=== PATIENT | female | born 1980 | race Caucasian/White ===

== ENCOUNTER → 2016-11-09 | Outpatient (CLI) | payer BC ==
[~2016-11-09] MED LIST: FISHCAP4 PO; MAGNESIUM CALM PO; PROBCAP4 PO
== END ==
LOC: HPND 08:02
PROVIDERS: ATTEND Obstetrics & Gynecology
DX: O09.523 Supervision of elderly multigravida, third trimester (principal); Z84.81 Family history of carrier of genetic disease
CPT/HCPCS: 76816